=== PATIENT | male | born 1975 | race Two or more races ===

== ENCOUNTER 2020-06-06 02:04 | Inpatient (IN) | payer OTHER ==
[~2020-06-06] VITALS: Ht 175.3 cm; Wt 74.8 kg
[2020-06-06] MEDS ORDERED: ELIQUIS2.5 MG (02:19)
== END 2020-06-12 14:16 | disposition home or self-care (01) | DRG 445 ==
LOC: ER 02:04 → SURG 10:49
PROVIDERS: ADMIT Surgery; ATTEND Surgery
PROC: BW40ZZZ Ultrasonography of Abdomen (ICD-10-PCS; 2020-06-06)
PROC: 0F9430Z Drainage of Gallbladder with Drainage Device, Percutaneous Approach (ICD-10-PCS; principal; 2020-06-09)
PROC: BF37ZZZ Magnetic Resonance Imaging (MRI) of Pancreas (ICD-10-PCS; 2020-06-09)
DX: K80.00 Calculus of gallbladder with acute cholecystitis without obstruction (principal); D68.59 Other primary thrombophilia; E80.6 Other disorders of bilirubin metabolism; Z20.828 Contact with and (suspected) exposure to other viral communicable diseases

== ENCOUNTER 2020-06-27 09:47 | Emergency (ER) | payer OTHER ==
[~2020-06-27] VITALS: Ht 175.3 cm; Wt 71.2 kg
[~2020-06-27 09:47] MED LIST: ELIQUIS2.5 MG
== END 2020-06-27 14:19 | disposition home or self-care (01) ==
LOC: ER 09:47
DX: K80.20 Calculus of gallbladder without cholecystitis without obstruction (principal); R10.11 Right upper quadrant pain

== ENCOUNTER 2020-07-21 10:30 | Outpatient (CLI) | payer OTHER ==
[2020-07-22] MEDS ORDERED: LIPOFEN50 MG (10:40)
== END 2020-07-21 10:34 | disposition home or self-care (01) ==
LOC: RX STUDY 10:30
PROVIDERS: ATTEND Surgery
DX: K80.00 Calculus of gallbladder with acute cholecystitis without obstruction (principal)

== ENCOUNTER 2020-07-22 10:33 | Inpatient (IN) | payer OTHER ==
[~2020-07-22] VITALS: Ht 175.3 cm; Wt 71.7 kg
[2020-07-22] MEDS ORDERED: LIPOFEN50 MG (10:40)
== END 2020-07-30 13:02 | disposition home or self-care (01) | DRG 921 ==
LOC: ER 10:33 → SEC-K 16:09 → SURH 07-23 22:12
PROVIDERS: ADMIT Surgery; ATTEND Surgery
PROC: BW40ZZZ Ultrasonography of Abdomen (ICD-10-PCS; principal; 2020-07-22)
PROC: BF37ZZZ Magnetic Resonance Imaging (MRI) of Pancreas (ICD-10-PCS; 2020-07-22)
PROC: BW20YZZ Computerized Tomography (CT Scan) of Abdomen using Other Contrast (ICD-10-PCS; 2020-07-25)
DX: T81.61XA Aseptic peritonitis due to foreign substance accidentally left during a procedure, initial encounter (principal); Z20.822 Contact with and (suspected) exposure to COVID-19; T50.8X5A Adverse effect of diagnostic agents, initial encounter